=== PATIENT | female | born 1995 | race African-American/Black ===

== ENCOUNTER 2018-03-25 17:26 | Emergency (ER) | payer SELFPAY ==
[~2018-03-25] VITALS: Ht 165.1 cm; Wt 70.0 kg
[2018-03-25 17:38] VITALS: BP 148/86; PULSE 94; RESP 16; TEMP 97.8; O2SAT 99
[2018-03-25 18:37] LABS: AMORPHOUS SEDIMENT, URINE RARE; BACTERIA, URINE FEW /hpf; BILIRUBIN, URINE NEG (NEG); BLOOD, URINE LARGE (NEG); GLUCOSE,URINE NEG (NEG); KETONE, URINE NEG (NEG); NITRITE,URINE NEG (NEG); PH, URINE 7.5 (5.0-8.5); SQUAMOUS EPITHELIAL CELL URINE 6 /hpf (0-5); URINE COLOR YELLOW (YELLW/STRAW); URINE LEUKOCYTE ESTERASE LARGE (NEG)
[2018-03-25] MEDS ORDERED: MACR100C3 PO (18:56)
[2018-03-25] MEDS ORDERED: PHEN0.4T PO (18:56)
[2018-03-25] MEDS ORDERED: AZITHROMYCIN PWD FOR SUSP 1 GM PACKET PO ONE (19:00)
[2018-03-25] MEDS ORDERED: LIDOCAINE HCL 1% 50 ML VIAL IM ONE (19:00)
[2018-03-25] MEDS ORDERED: cefTRIAXone 250 MG VIAL IM ONE (19:00)
--- NOTE | 2018-03-25 19:22 | PD ---
HPI Chief Complaint: Complaint Time Seen by Provider: 18:41 Travel History International Travel<30 days: No Contact w/Intl Traveler<30days: No Traveled to known affect area: No History of Present Illness HPI 22-year-old black female presents emergency department with pelvic pressure and increased urinary frequency with dysuria. She has noticed some hematuria with urination. She denies any fever chills. No nausea vomiting. No back pain. Patient states that she is sexually active and does not practice safe sex. She would also like to be tested for STDs. She denies any vaginal discharge at this time. No abdominal pain. Symptoms are moderate. Worse with urination. No alleviating factors. No rashes or lesions. PFSH Past Medical History Medical History: Denies Significant Hx Tetanus Vaccination: < 5 Years ?: Not Past Surgical History Surgical History: No Previous Surgery Social History Alcohol Use: Yes (occassional) Tobacco Use: No Substance Use: No Allergies-Medications (Allergen,Severity, Reaction): Coded Allergies: No Known Allergies (Unverified , 03/25/18) Reported Meds & Prescriptions Reported Meds & Active Scripts Active Pyridium (Phenazopyridine HCl) 100 Mg Tab 100 Mg PO Q8H PRN 3 Days Macrodantin (Nitrofurantoin Macrocrystal) 100 Mg Cap 100 Mg PO BID 10 Days Review of Systems Except as stated in HPI: all other systems reviewed are Neg Physical Exam Narrative GENERAL: Well-developed, well-nourished in no acute distress. Nontoxic appearing. HEAD: Normocephalic, atraumatic. EYES: Pupils equal round and reactive. Extraocular motions intact. No scleral icterus. No injection or drainage. ENT: TMs clear without erythema. The external auditory canals clear. Nose: clear . Posterior pharynx is pink and moist. No tonsillar edema or exudate. Uvula midline. Airway patent. NECK: Trachea midline.Supple, nontender, moves head freely. No central bony tenderness or spasm. CARDIOVASCULAR: Regular rate and rhythm without murmurs, gallops, or rubs. RESPIRATORY: Clear to auscultation. Breath sounds equal bilaterally. No wheezes , rales, or rhonchi. GASTROINTESTINAL: Abdomen soft, non-tender, nondistended. No hepato-splenomegaly , or palpable masses. No guarding. EXTREMITIES: No clubbing, cyanosis, or edema. No joint tenderness, effusion, or edema noted. BACK: Nontender without deformity or crepitance. No flank tenderness. Data Data Last Documented VS Vital Signs Date Time Temp Pulse Resp B/P (MAP) Pulse Ox O2 Delivery O2 Flow Rate FiO2 03/25/18 17:38 97.8 94 16 148/86 (106) 99 Orders Orders Urinalysis - C+S If Indicated (03/25/18 17:40) Ed Urine Pregnancytest Poc (03/25/18 17:40) Urine Culture (03/25/18 17:56) Gc And Chlamydia Pcr (03/25/18 18:53) Wet Prep Profile (03/25/18 18:53) Azithromycin Powd Pack (Zithromax Powd P (03/25/18 19:00) Ceftriaxone Inj (Rocephin Inj) (03/25/18 19:00) Lidocaine 1% Inj (50 Ml) (Xylocaine 1% I (03/25/18 19:00) Labs Laboratory Tests Test 03/25/18 17:56 Urine Color YELLOW Urine Turbidity HAZY Urine pH 7.5 Urine Specific [place] 1.015 Urine Protein 30 mg/dL Urine Glucose (UA) NEG mg/dL Urine Ketones NEG mg/dL Urine Occult Blood LARGE Urine Nitrite NEG Urine Bilirubin NEG Urine Urobilinogen LESS THAN 2.0 MG/DL Urine Leukocyte Esterase LARGE Urine RBC /hpf Urine WBC /hpf Urine Squamous Epithelial Cells 6 /hpf Urine Amorphous Sediment RARE Urine Bacteria FEW /hpf Microscopic Urinalysis Comment CULTURE INDICATED MDM Medical Decision Making Medical Screen Exam Complete: Yes Emergency Medical Condition: Yes Medical Record Reviewed: Yes Interpretation(s) Laboratory Tests Test 03/25/18 17:56 Urine Color YELLOW Urine Turbidity HAZY Urine pH 7.5 Urine Specific [place] 1.015 Urine Protein 30 mg/dL Urine Glucose (UA) NEG mg/dL Urine Ketones NEG mg/dL Urine Occult Blood LARGE Urine Nitrite NEG Urine Bilirubin NEG Urine Urobilinogen LESS THAN 2.0 MG/DL Urine Leukocyte Esterase LARGE Urine RBC /hpf Urine WBC /hpf Urine Squamous Epithelial Cells 6 /hpf Urine Amorphous Sediment RARE Urine Bacteria FEW /hpf Microscopic Urinalysis Comment CULTURE INDICATED Differential Diagnosis MDM: Moderate Differential diagnoses: Pyelonephritis, UTI, vaginitis, STD Narrative Course Patient is given Rocephin 250 mg IM Zithromax 1 g p.o. Pelvic exam will be performed. Urinalysis reveals a UTI. Patient has been counseled on safe sex practices. This is UTI Procedures Procedure Narrative Nurse Sigrid is present for the exam GENITOURINARY: Normal external genitalia without lesions or erythema. Vaginal vault without blood or drainage. Cervical os was closed without drainage. bimanual is deferred due to lack of pain. Diagnosis Primary Impression: UTI Patient Instructions: General Instructions Additional Instructions: Rest. Partner notification. Follow-up with the [facility] for further STD testing such as HIV, syphilis and hepatitis. No intercourse until all partners treated. Always use a condom. Return to the ER if any problems. Med/Other Pt SpecificInfo: Prescription(s) given Scripts Phenazopyridine (Pyridium) 100 Mg Tab 100 MG PO Q8H Y for DYSURIA for 3 Days, #9 TAB 0 Refills Prov: Russel Dunne MD 03/25/18 Nitrofurantoin Macrocrystal (Macrodantin) 100 Mg Cap 100 MG PO BID for 10 Days, #20 CAP 0 Refills Prov: Russel Dunne MD 03/25/18 Disposition: 01 DISCHARGE HOME Condition: Stable Mick Roman March 25, 2018 19:22
--- NOTE | 2018-03-25 19:33 | PD ---
Physical Exam Date Seen by Provider: March 25, 2018 Time Seen by Provider: 19:32 Narrative 22-year-old female came to the emergency room with history of pelvic pressure, urinary frequency and urgency and noticing some blood in her urine. Patient says this started this morning. She has had unprotected sex. She had googled at home her symptoms and the first thing that came up was UTI but she wanted to make sure she does not have STD given the fact that she has had unprotected sex. Patient was seen by my PA and I am supervising him. He had performed a pelvic exam and as per him the exam was negative. Currently waiting for the wet mount. The UA is strongly suggestive of UTI and she will be treated for that. If the wet mount is positive she will get treatment for that as well. Have explained all this procedure to the patient. The GC and Chlamydia will be followed up and if it is positive she will be called. Patient will get a dose of Macrobid and a prescription to go home with for the UTI. Data Data Last Documented VS Vital Signs Date Time Temp Pulse Resp B/P (MAP) Pulse Ox O2 Delivery O2 Flow Rate FiO2 03/25/18 17:38 97.8 94 16 148/86 (106) 99 Orders Orders Urinalysis - C+S If Indicated (03/25/18 17:40) Ed Urine Pregnancytest Poc (03/25/18 17:40) Urine Culture (03/25/18 17:56) Gc And Chlamydia Pcr (03/25/18 18:53) Wet Prep Profile (03/25/18 18:53) Azithromycin Powd Pack (Zithromax Powd P (03/25/18 19:00) Ceftriaxone Inj (Rocephin Inj) (03/25/18 19:00) Lidocaine 1% Inj (50 Ml) (Xylocaine 1% I (03/25/18 19:00) Ed Discharge Order (03/25/18 19:29) Labs Laboratory Tests Test 03/25/18 17:56 Urine Color YELLOW Urine Turbidity HAZY Urine pH 7.5 Urine Specific [place] 1.015 Urine Protein 30 mg/dL Urine Glucose (UA) NEG mg/dL Urine Ketones NEG mg/dL Urine Occult Blood LARGE Urine Nitrite NEG Urine Bilirubin NEG Urine Urobilinogen LESS THAN 2.0 MG/DL Urine Leukocyte Esterase LARGE Urine RBC /hpf Urine WBC /hpf Urine Squamous Epithelial Cells 6 /hpf Urine Amorphous Sediment RARE Urine Bacteria FEW /hpf Microscopic Urinalysis Comment CULTURE INDICATED MDM Supervised Visit with HA: Yes Diagnosis Primary Impression: UTI Patient Instructions: General Instructions Additional Instruction: Rest. Partner notification. Follow-up with the [facility] for further STD testing such as HIV, syphilis and hepatitis. No intercourse until all partners treated. Always use a condom. Return to the ER if any problems. Scripts Phenazopyridine (Pyridium) 100 Mg Tab 100 MG PO Q8H Y for DYSURIA for 3 Days, #9 TAB 0 Refills Prov: Russel Dunne MD 03/25/18 Nitrofurantoin Macrocrystal (Macrodantin) 100 Mg Cap 100 MG PO BID for 10 Days, #20 CAP 0 Refills Prov: Russel Dunne MD 03/25/18 Disposition: 01 DISCHARGE HOME Condition: Stable Russel Dunne MD March 25, 2018 19:33
== END 2018-03-25 20:12 | disposition home or self-care (01) ==
LOC: NEPD 17:26
DX: N39.0 Urinary tract infection, site not specified (principal); B96.20 Unspecified Escherichia coli [E. coli] as the cause of diseases classified elsewhere
CPT/HCPCS: 81001; 84703; 87077; 87086; 87186; 87210; 87491; 87591; 96372; 99284; J0696